=== PATIENT | male | born 1985 | race Caucasian/White ===

== ENCOUNTER → 2018-06-25 | Outpatient (REF) | payer OTHER ==
[~2018-06-25] MED LIST: AMOX-362 PO; HYDR-653 PO
== END ==
PROVIDERS: ATTEND Nurse Practitioner Family
DX: Z01.812 Encounter for preprocedural laboratory examination (principal); Z11.3 Encounter for screening for infections with a predominantly sexual mode of transmission
CPT/HCPCS: 86689